=== PATIENT | male | born 1945 | race Caucasian/White ===

== ENCOUNTER 2025-04-26 03:05 | Emergency (ER) | payer OTHER, SELFPAY ==
[2025-04-26] VITALS (9 sets, daily range): BP systolic 141–169; BP diastolic 70–92; PULSE 61–75; BMI 32.5
[2025-04-26] MEDS: NSS 1000 IV (03:16)
[2025-04-26 03:29] LABS: Hematocrit 49.5 % (39.0-52.0); Hemoglobin 16.3 g/dL (13.0-18.0); Mean Corp Hgb Conc. 32.9 g/dL (33.0-37.0); Mean Corpuscular Volume 92.4 fL (80.0-94.0); Nucleated Red Blood Cells % 0 % (-); Platelet Count 239 10^3/uL (130-400); Red Cell Dist. Width 12.4 % (11.5-14.5)
[2025-04-26 03:52] LABS: ALT (SGPT) 39 U/L (0-50); AST (SGOT) 43 U/L (17-59); Albumin 5.0 g/dl (3.5-5.0); Alkaline Phosphatase 54 U/L (38-126); Blood Urea Nitrogen 21 mg/dl (9-20); Calcium 9.8 mg/dl (8.4-10.2); Carbon Dioxide 27 mmol/L (22-30); Chloride 105 mmol/L (98-107); Estimated Creatinine Clearance 55 ml/min; Glucose 136 mg/dl (70-99); Potassium 4.3 mmol/L (3.5-5.1); Sodium 137 mmol/L (135-145); Total Protein 7.9 g/dl (6.3-8.2); eGFR > 60.00
--- NOTE | 2025-04-26 06:13 | ED.GENMED ---
History of Present Illness
General
Chief Complaint: Abdominal Symptoms
Time Seen by Provider: 04/26/25 04:01
History of Present Illness
History of Present Illness:
Note:
CHIEF COMPLAINT(S)
Diarrhea with associated dizziness and syncope.
HISTORY OF PRESENT ILLNESS
The patient is a 80-year-old male who reported waking around 12:45 AM with a need to hydrate and subsequently developed severe diarrhea described as 'the runs.' The patient reported passing stools approximately five times and experiencing dry heaves
but without abdominal pain. He described his condition as discomfort rather than pain. Following the episodes of diarrhea, the patient experienced dizziness and a black-out episode. There was no chest pain or shortness of breath reported. At the
time of the consultation, the patient felt tired but did not have an ongoing urge for diarrhea or nausea. Physical evaluation revealed hyperactive bowel sounds, indicative of possible gastrointestinal hyperactivity, suggesting conditions like
enteritis.
PHYSICAL EXAM
General: Alert, no acute distress.
Skin: Warm, dry.
Head: Normocephalic, atraumatic.
Neck: Supple, trachea midline.
Eyes, Ears, Nose, Mouth and Throat: Oral mucosa moist.
Cardiovascular: Normal peripheral perfusion, No edema.
Respiratory: Respirations are non-labored.
Gastrointestinal: Abdomen nondistended, hyperactive bowel sounds noted.
Back: Normal range of motion, Normal alignment.
Musculoskeletal: Normal ROM, normal strength.
Neurological: Alert and oriented to person, place, time, and situation, No focal neurological deficit observed.
Psychiatric: Cooperative, appropriate mood & affect.
PROBLEM LIST
Acute:
- Severe diarrhea with syncope
- Possible enteritis
PLAN
- Administer IV fluids to address possible dehydration.
- Monitor orthostatic vital signs to assess the impact of positional changes on symptoms.
- Perform abdominal x-ray to evaluate potential underlying gastrointestinal issues given the presence of hyperactive bowel sounds.
- If symptomatology worsens or if abdominal pain, diarrhea, or vomiting returns, plan for an abdominal CT scan.
DIFFERENTIAL DIAGNOSIS
The Differential Diagnosis includes, in no particular order and is not limited to:
- Enteritis
- Gastroenteritis
- Food poisoning
- Dehydration
- Orthostatic hypotension
- Viral gastroenteritis
- Bacterial infection (such as E. coli or Salmonella)
- Toxic ingestion
- Medication side effects
- Ischemic bowel disease
Disposition:
SUMMARY OF ENCOUNTER
A 80-year-old male presented with symptoms of diarrhea, dizziness, and a black-out episode. He has no abdominal pain and his nausea and vomiting have subsided. The patient received IV fluids in the emergency department to address potential
dehydration and reported feeling better. He was able to drink liquids without issues. The patient expressed a wish to be discharged home.
DISPOSITION
Discharge.
ASSESSMENT
The patient presented with severe diarrhea leading to dizziness and syncope. Symptoms are suggestive of possible enteritis or viral gastroenteritis.
EMERGENCY TREATMENTS ADMINISTERED
Intravenous fluids.
PLAN
Monitor for any recurrence of symptoms. Educate patient on signs that require immediate medical attention, such as abdominal pain or severe dehydration symptoms.
PATIENT EDUCATION AND COUNSELING
Discussed with the patient the importance of staying hydrated and recognizing signs of dehydration. Advised to return if symptoms worsen or new symptoms develop.
FOLLOW-UP INSTRUCTIONS
Please follow up with the primary care physician if symptoms persist or worsen.
MEDICATION RECONCILIATION
Ondansetron (Zofran) prescribed upon discharge for nausea control.
MEDICAL DECISION MAKING
- Number and Complexity of Problems Addressed: Chronic conditions affecting care include potential enteritis, viral gastroenteritis, and dehydration.
- Data:
Category 1: My independent interpretation of plans involved an abdominal x-ray to evaluate underlying gastrointestinal issues due to hyperactive bowel sounds. Consideration for CT scan if symptoms worsened.
Category 3: Discussion of management was directed by the patients expressed desire to be discharged and the absence of acute distress upon reassessment.
- Risk: Consideration of Admission/Observation: Escalation of care was considered given the complexity of the patients presenting complaint and comorbidities. However, the patient is deemed safe for outpatient management based on reassuring work-up
results, symptom control, stable vitals, and patients agreement with discharge.
DIAGNOSIS
1. Viral gastroenteritis (ICD-10: A08.4)
2. Dehydration (ICD-10: E86.0)
Phy Exam
Physical Exam
Physical Exam:
.
Course
Orders/Labs/Results
Orders:
Orders
04/26/25 03:16
0.9% Sodium Chloride 1000 ml [Nss] 1,000 ml IV BOLUS
04/26/25 03:17
Complete Blood Count/With Diff Urgent
Comprehensive Metabolic Panel Urgent
Abnormal Lab Results
04/26/25
03:17
WBC 16.4 H 10^3/uL
(4.8-10.8)
MCHC 32.9 L g/dL
(33.0-37.0)
Abs Immat Gran (auto) 0.1 H 10^3/uL
(0-0.05)
Absolute Neuts (auto) 13.6 H 10^3/uL
(1.4-6.5)
Absolute Lymphs (auto) 0.9 L 10^3/uL
(1.2-3.4)
Absolute Monos (auto) 1.4 H 10^3/uL
(0.1-0.6)
Neutrophils % 83.1 H %
(42.2-75.2)
Lymphocytes % 5.7 L %
(20.5-51.1)
BUN 21 H mg/dl
(9-20)
Glucose 136 H mg/dl
(70-99)
04/26/25 03:17
04/26/25 03:17
Vital Signs
Initial and Last Documented VS:
Initial Vital Signs
Temp Pulse Resp BP Pulse Ox
97.6 F 55 12 163/81 99
04/26/25 03:07 04/26/25 03:07 04/26/25 03:07 04/26/25 03:07 04/26/25 03:07
Last Documented Vital Signs
Temp Pulse Resp BP Pulse Ox
97.6 F 60 18 169/92 98
04/26/25 03:07 04/26/25 06:15 04/26/25 06:15 04/26/25 06:00 04/26/25 06:30
*Pulse Oximetry
SaO2: 99
Oxygen Mode of Delivery: Room air
Patient hypoxic: no
*Critical Care Note
Total Time (30-74mins, 75-104mins- exclusive of procedures): Not Applicable
ED Attending Note
-
Portions of this chart may have been created with voice recognition software.� Occasional wrong word or��sound alike� substitutions may have occurred due to the inherent limitations of voice recognition software.
Discharge Plan
Departure
Patient Disposition: Home (Routine Discharge)
Date of Disposition: 04/26/25
Time of Disposition: 06:13
Patient with high blood pressure during this ER visit?: Yes
Condition: Good
Discharge Problem:
Gastroenteritis
Instructions: Mallard Diet, Nausea and Vomiting, Adult (DC), Abdominal Pain, BLOOD PRESSURE
Prescriptions:
New
ondansetron 4 mg tablet,disintegrating
4 mg PO Q8H PRN (Reason: nausea and vomiting) 5 Days Qty: 10 0RF
Referrals:
[facility] [Outside]
Activity Restrictions/Additional Instructions:
Your prescriptions were sent to the [facility]
Thank You for choosing [facility].
It was a pleasure meeting you and taking part in your care. We hope for your continued healing and wellness.
Please read discharge instructions in their entirety. However, they are for general education and may not describe your exact diagnosis at discharge. Information on your ER visit and medical conditions were discussed with you along with appropriate
follow up information...
If indicated, please take your medications as instructed and indicated on discharge paperwork.
Please schedule a follow up appointment as directed. Call to schedule an appointment
Please return to the emergency department with ANY change in, persisting, or worsening of symptoms. If any of your symptoms do not improve, or persist, or become more severe within 6-12 hours, please return to the emergency department for further
care.
Please return to the emergency department if you develop a headache, neck pain/stiffness, fever greater than 100.4F, chest pain, shortness of breath, persistent nausea, vomiting, slurred speech, difficulty walking, numbness/tingling, weakness, signs
of infection or any other symptoms that are worrisome to you.
If you have any questions or concerns please do not hesitate to call the Hospital at .
Interventions
Interventions:
*Risk Screen - Suicide Last Done: 04/26/25 03:11
*General Assessment Last Done: 04/26/25 03:11
*Neglect/Abuse Screening Last Done: 04/26/25 03:11
*ED- Fall Risk Assessment Last Done: 04/26/25 03:11
*ED COVID-19 Vaccine History Last Done: 04/26/25 03:11
*ED Influenza Vaccine History Last Done: 04/26/25 03:11
*Nursing Disposition Last Done: 04/26/25 06:40
MF-Rdpizl-Iiqehdsxfy Assessment Last Done: 04/26/25 03:13
Discharge Date and Time
Discharge Date/Time: 04/26/25 06:42
Print Language: YAKUT
== END 2025-04-26 06:42 | disposition home or self-care (01) ==
LOC: EMR 03:05
PROVIDERS: EMERGENCY PHYSICIAN Student in an Organized Health Care Education/Training Program
DX: A08.4 Viral intestinal infection, unspecified (principal); E86.0 Dehydration; R55 Syncope and collapse
CPT/HCPCS: 96360; 99284; 80053; 85025